=== PATIENT | male | born 1985 | race Caucasian/White ===

== ENCOUNTER 2019-05-01 12:45 | Emergency (ER) | payer BC, SELFPAY ==
[2019-05-01] MEDS ORDERED: Adacel (T-DAP) 0.5 ML SYRINGE ONE (12:55)
[2019-05-01] MEDS ORDERED: Lidocaine 2% PF 5 ML VIAL ONE (12:55)
[2019-05-01] MEDS ORDERED: Bacitracin 1 PK ONE (13:28)
--- NOTE | 2019-05-01 15:55 | RAD ---
LEFT INDEX FINGER THREE VIEWS: 05/01/19 Soft tissue swelling is seen in the proximal finger, particularly around the PIP joint No opaque fore ign body or fracture was seen. The joints appear normal. IMPRESSION: Soft tissue injury. POS: HOME
== END 2019-05-01 13:50 | disposition home or self-care (01) ==
LOC: BURERS 12:45
DX: S61.211A Laceration without foreign body of left index finger without damage to nail, initial encounter (principal); F17.210 Nicotine dependence, cigarettes, uncomplicated; W23.0XXA Caught, crushed, jammed, or pinched between moving objects, initial encounter; Z23 Encounter for immunization
CPT/HCPCS: 12002; 90471; 90715; J2001